=== PATIENT | male | born 1955 | race Two or more races ===

== ENCOUNTER → 2016-05-26 | Outpatient (CLI) | payer OTHER ==
--- NOTE | 2016-05-26 09:14 | DX ---
Cervical Spine, Four Views History: Neck pain and radiculopathy. Findings: Disk height narrowing C4-C5 through C6-C7. Uncovertebral joint hypertrophy and spurring cau sing mild right neural foraminal narrowing at C4-C5, C5-C6, and C6-C7. There is minimal to mild neura l foraminal narrowing on the left at C3-C4, C4-C5, and C5-C6. No evidence for fracture. No significan t spondylolisthesis. No evidence for prevertebral soft tissue swelling. Impression: Mild multilevel degenerative disk and degenerative joint disease cervical spine.
== END ==
LOC: BRMIMAGING 08:34
PROVIDERS: ATTEND Physician Assistant
DX: M54.12 Radiculopathy, cervical region (principal)
CPT/HCPCS: 72050-PO

== ENCOUNTER → 2016-09-07 | Outpatient (CLI) | payer OTHER | LOC: BRMIMAGING 15:14 | PROVIDERS: ATTEND Family Medicine | DX: M19.042 Primary osteoarthritis, left hand (principal); M79.642 Pain in left hand | CPT/HCPCS: 73130-PO ==

== ENCOUNTER → 2017-03-10 | Outpatient (CLI) | payer OTHER | LOC: BRMIMAGING 14:50 | DX: M50.321 Other cervical disc degeneration at C4-C5 level (principal); M50.33 Other cervical disc degeneration, cervicothoracic region | CPT/HCPCS: 72040-PO ==